=== PATIENT | male | born 1945 | race Caucasian/White ===

== ENCOUNTER 2016-12-11 10:52 | Emergency (ER) | payer OTHER ==
[2016-12-11 12:04] VITALS: BP 116/69
--- NOTE | 2016-12-11 12:05 | ED ---
Throat Pain/Nasal Congestion - HPI Summary HPI Summary: Patient presents with left sided dental pain. Son is interpreting for him. He states he had nerve pain in his upper front canine and was seen by [facility]. He is to have a root canal soon, but is awaiting insurance. He has a follow up this . However, a few days ago he began to have more pain and swelling. There is a 2x3cm palpable raised area to the lateral side of the left nare into the maxillary sinus. Swelling occurred since last evening and is worse today. He has tried aleve without relief of pain. Pain is 7/10, sharp and throbbing. Denies airway compromise or SOB. Denies ear pain, eye pain, blurry vision or double vision. Pain is worse with chewing. He denies difficulty swallowing. - History of Current Complaint Chief Complaint: EDDentalPain Time Seen by Provider: 12/11/16 10:57 Hx Obtained From: Patient Onset/Duration: Sudden Onset Severity: Moderate Associated Signs And Symptoms: Positive: Negative - Epiglottits Risk Factors Epiglottis Risk Factors: Negative - Allergies/Home Medications Allergies/Adverse Reactions: Allergies Allergy/AdvReac Type Severity Reaction Status Date / Time Amoxicillin Allergy Anaphylatic Verified 12/11/16 11:47 Shock Penicillins Allergy Anaphylatic Verified 12/11/16 11:47 Shock PMH/Surg Hx/FS Hx/Imm Hx Previously Healthy: Yes Endocrine/Hematology History: Denies: Hx Diabetes, Hx Thyroid Disease Cardiovascular History: Reports: Hx Hypertension Respiratory History: Denies: Hx Asthma, Hx Chronic Obstructive Pulmonary Disease (COPD) GI History: Denies: Hx Ulcer - Immunization History Hx Pertussis Vaccination: No Immunizations Up to Date: Unable to Obtain/Confirm Infectious Disease History: No Infectious Disease History: Denies: Hx Hepatitis, Hx Human Immunodeficiency Virus (HIV), Traveled Outside the [place] in Last 30 Days - Social History Occupation: Unemployed Lives: With Family Alcohol Use: None Hx Substance Use: No Substance Use Type: Reports: None Smoking Status (MU): Current Every Day Smoker Type: Cigars Review of Systems Constitutional: Negative Eyes: Negative Positive: Dental Pain Cardiovascular: Negative Respiratory: Negative Positive: no symptoms reported, see HPI Neurological: Negative All Other Systems Reviewed And Are Negative: Yes Physical Exam Triage Information Reviewed: Yes Vital Signs On Initial Exam: Initial Vitals Temp Pulse Resp BP Pulse Ox 97.5 F 96 20 115/65 98 12/11/16 10:54 12/11/16 10:54 12/11/16 10:54 12/11/16 10:54 12/11/16 10:54 Vital Signs Reviewed: Yes Appearance: Positive: Well-Appearing Skin: Positive: Warm, Skin Color Reflects Adequate Perfusion Head/Face: Positive: Normal Head/Face Inspection Eyes: Positive: ARLENE, Conjunctiva Clear Dental: Positive: Abscess @ - left upper canine Neck: Positive: Supple, No Lymphadenopathy Respiratory/Lung Sounds: Positive: Clear to Auscultation, Breath Sounds Present Cardiovascular: Positive: Normal, RRR Musculoskeletal: Positive: Normal, Strength/ROM Intact Neurological: Positive: Sensory/Motor Intact, Alert, Oriented to Person Place, Time Psychiatric: Positive: Normal Diagnostics - Vital Signs Vital Signs Temp Pulse Resp BP Pulse Ox 12/11/16 11:30 97.5 F 93 16 117/69 100 12/11/16 10:54 97.5 F 96 20 115/65 98 - Laboratory Lab Statement: Any lab studies that have been ordered have been reviewed, and results considered in the medical decision making process. EENT Course/Dx - Course Course Of Treatment: Patient evaluated for dental and maxillary sinus abscess. There is a 2x3cm area to the lateral left side of the nare which is palpable and painful which occurred since last evening. He is currently awaiting a root canal for the same tooth which he has had hx of infection. Considered CT scan to see depth of abscess, but based on rapid growth overnight, likely the abscess is not deep. Assessment/Plan: Patient will call tomorrow morning to get in to see dentist. Will place on Clindamycin 4 times daily x 7 days and pain medications. Patient is to follow up on as scheduled or advised to go sooner. If symptoms return or worsen, trismus develops or eye involvment - patient is instructed to return immediately to the ED. - Differential Diagnoses Differential Diagnoses: Mandibular/Maxillary Trauma, Odontogenic Pain, Pain of Unknown Etiology - Diagnoses Provider Diagnoses: Dental abscess Discharge - Discharge Plan Condition: Stable Disposition: HOME Prescriptions: Clindamycin Cap(NF) [Clindamycin Cap 300 mg Cap(NF)] 300 mg PO Q6H #28 cap oxyCODONE/Acetamin 10/325(NF) [Percocet 10/325 (NF)] 1 tab PO Q6H PRN #20 tab MDD 4 PRN Reason: Pain Patient Education Materials: Dental Abscess (ED) Referrals: Dalia Adam MD [Primary Care Provider] - Additional Instructions: You have been diagnosed with dental pain with possible infection: Antibiotics as prescribed to you. Clindamycin four times daily for 7 days. To minimize the potential for gastrointestinal intolerance, Pencillin should be taken at the start of a meal. If you have any questions about your medication, please contact us or ask your pharmacist. Salt water rinses several times per day will improve healing time. Ibuprofen 600mg three times daily with meals for discomfort. May use lollicaines over the area for comfort. Follow up with a dentist for routine care to prevent recurrence of infections. If fever, worsening pain or swelling develops, see your PCP, dentist or come back to the Emergency Department. Images - Images Head: 1 - 2x3cm palpable raised area resembling maxillay sinus abscess from infected #10 tooth
== END 2016-12-11 12:01 | disposition home or self-care (01) ==
LOC: ED 10:52
DX: K04.7 Periapical abscess without sinus (principal); I10 Essential (primary) hypertension; Z88.0 Allergy status to penicillin; F17.210 Nicotine dependence, cigarettes, uncomplicated
CPT/HCPCS: 99282

== ENCOUNTER 2018-10-14 11:51 | Emergency (ER) | payer MEDICARE, OTHER ==
[2018-10-14 13:10] VITALS: BP 117/59
--- NOTE | 2018-10-14 13:31 | UC ---
Dental HPI - HPI Summary HPI Summary: Past history of dental abscess of upper left incisor. For the past 3 days, has had increased pain and swelling of the gum and frenulum, with increasing pain. Began old clindamycin which he had at home. Sees [facility] and will schedule tomorrow. 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 - History of Current Complaint Chief Complaint: UCDentalProblem Stated Complaint: MOUTH INFECTION Time Seen by Provider: 10/14/18 13:20 Hx Obtained From: Patient Onset/Duration: Gradual Onset, Lasting Days - 4 Severity: Moderate Pain Intensity: 8 Aggravating Factor(s): Chewing Alleviating Factor(s): Nothing Related History: Previous Dental Care on Same Tooth, Swelling - Allergies/Home Medications Allergies/Adverse Reactions: Allergies Allergy/AdvReac Type Severity Reaction Status Date / Time amoxicillin Allergy Anaphylatic Verified 10/14/18 13:06 Shock Penicillins Allergy Anaphylatic Verified 10/14/18 13:06 Shock Home Medications: Home Medications Acetaminophen [Tylenol Extra Strength] 500 mg PO ONCE PRN 10/14/18 [History Confirmed 10/14/18] PMH/Surg Hx/FS Hx/Imm Hx Previously Healthy: Yes Cardiovascular History: Other - elevated cholesterol. GI/ History: Other - prostatic hypertrophy - Surgical History Surgical History: None - Family History Known Family History: Positive: Non-Contributory - Social History Occupation: Retired Lives: With Family - lives with , son and [id number] Alcohol Use: None Alcohol Amount: former Substance Use Type: None Smoking Status (MU): Former Smoker Type: Cigars Household Exposure Type: Cigarettes Review of Systems All Other Systems Reviewed And Are Negative: Yes Constitutional: Positive: Negative ENT: Positive: Dental Pain, Other - chronic tinnitus Cardiovascular: Positive: Other - elevated cholesterol treated. Genitourinary: Positive: Other - BPH controlled with medications. Is Patient Immunocompromised?: No Physical Exam Triage Information Reviewed: Yes Appearance: Well-Appearing, Pain Distress - moderate with touch, Thin Vital Signs: Initial Vital Signs Temp 98.1 F 10/14/18 12:45 Pulse 76 10/14/18 12:45 Resp 18 10/14/18 12:45 BP 117/59 10/14/18 12:45 Pulse Ox 98 10/14/18 12:45 Eye Exam: Normal ENT: Positive: Pharynx normal, TMs normal Dental: Positive: Percussion Tenderness @ - #9, Abscess @ - 9, Cervical Lymphadenopathy. Negative: Gross Decay/Caries @, Dental Fracture @ Neck: Positive: Supple, Nontender, No Lymphadenopathy Respiratory: Positive: Lungs clear, Normal breath sounds Cardiovascular: Positive: RRR, No Murmur Psychological Exam: Normal Images Dental: 1 - abscess Dental Complaint Course/Dx - Course Course Of Treatment: continue clindamycin for dental abscess. - Differential Dx/Diagnosis Provider Diagnosis: Dental abscess Discharge - Sign-Out/Discharge Documenting (check all that apply): Patient Departure All imaging exams completed and their final reports reviewed: No Studies - Discharge Plan Condition: Good Disposition: HOME Prescriptions: Clindamycin Cap(NF) [Clindamycin Cap 300 mg Cap(NF)] 300 mg PO QID #28 cap Patient Education Materials: Dental Abscess (ED) Referrals: Dalia Adam MD [Primary Care Provider] - Additional Instructions: A new clindamycin prescription has been sent. Use warm water and salt rinses to the mouth for relief of pain, along with acetaminophen 650mg up to 4 times per jackson, which could be alternated with ibuprofen 600mg three times daily. Follow up wth your dentist as soon as possible. - Billing Disposition and Condition Condition: GOOD Disposition: Home
== END 2018-10-14 14:05 | disposition home or self-care (01) ==
LOC: UCEAST 11:51
DX: K04.7 Periapical abscess without sinus (principal); Z88.0 Allergy status to penicillin; Z87.891 Personal history of nicotine dependence
CPT/HCPCS: 99212; G0463